=== PATIENT | male | born 1965 | race Caucasian/White ===

== ENCOUNTER 2016-11-03 10:05 | Emergency (ER) | payer SELFPAY ==
--- NOTE | 2016-11-03 10:52 | ERNOTE ---
Upper Extremity HPI - Narrative Date of Service: 11/03/16 - General Extremities Pain Location: hand: left, 5th finger: left Time Seen by Provider: 11/03/16 10:26 Source: patient Exam Limitations: no limitations - Immun/Allergies/Home Medications Immunizations: IMMUNIZATION HX Immunizations Up to Date Yes History of Influenza Vaccine No Hx Pneumococcal Vaccination No Allergies/Adverse Reactions: Allergies Allergy/AdvReac Type Severity Reaction Status Date / Time codeine AdvReac Mild n/v Verified 11/03/16 10:13 Home Medications: HOME MEDICATIONS Aspirin [Children's Aspirin] 81 mg PO DAILY 11/03/16 [Last Taken Unknown] - History of Present Illness Narrative: 51-year-old male presents to the emergency room for left hand swelling. Patient states that last Tuesday he was moving concrete when he accidentally dropped a piece on his left hand. Patient states that he is here for release back to work. he does not have any pain in his able to move his hand without any pain. Date (Duration): 11/03/16 Occurred: last week Location of Incident: home Severity: mild Method of Injury: Reports: direct blow Loss of Consciousness: Reports: no loss of consciousness Associated Symptoms: Denies: tingling, weakness, numbness distally, loss of feeling, loss of power (rt arm), loss of power (lt arm) Other Injuries: Reports: none Review of Systems - Review of Systems Constitutional: Present: no symptoms reported EYE: Present: no symptoms reported ENT: Present: no symptoms reported Respiratory: Present: no symptoms reported Cardiology: Present: no symptoms reported Gastrointestinal/Abdominal: Present: no symptoms reported Genitourinary: Present: no symptoms reported Musculoskeletal: Present: See HPI, joint swelling - swelling to back of his left hand Skin: Present: no symptoms reported Neurological: Present: no symptoms reported Endocrine: Present: no symptoms reported Hematologic/Lymphatic: Present: no symptoms reported Psych: Present: no symptoms reported All Other Systems: All systems neg except as marked - Patient's Past Medical History Patient History - Medical: Alcohol Abuse, Depression, Other Patient History - Cardiac/Respiratory: No pertinent hx Patient History - Cancer: No Hx of Cancer Patient History - Surgical Procedures: No surgical history Patient History - Other: None - Family History Mother Family History - Medical: History Unknown Father Family History - Medical: No pertinent hx, History Unknown - Social History Living Situations: home Abuse History: No History of abuse Psych History: Hx of Depression Alcohol Use: heavy Drug Use: marijuana, other - Immunizations Immunizations Up to Date: Yes Hx Pneumococcal Vaccination: No History of Influenza Vaccine: No Physical Exam - Physical Exam Narrative: tender over pink finger 1st knuckle. ROm WNL for patient, denies pain with ROM produce weigher equal, General Appearance: Present: wd/wn, alert, no apparent distress Eye Exam: Normal inspection: bilateral Ears, Nose, Throat: Present: normal ENT inspection Neck: Present: normal inspection, nontender Respiratory: Present: no respiratory distress, normal breath sounds, lungs clear Cardiovascular/Chest: Present: regular rate, rhythm, no murmur Peripheral Pulses: N=norm/S=strong/W=weak/B=bound/A=absent: Radial (R): Normal, Radial (L): Normal Gastrointestinal/Abdominal: Present: normal bowel sounds, nontender, soft Back Exam: Present: normal inspection, normal range of motion, no CVA tenderness Extremity Exam: Present: normal except -, extremity edema - back of left hand is swollen Neurological Exam: Present: alert, oriented, normal mood/affect, no motor/ sensory deficits Skin Exam: Present: normal color, warm/dry Lymphatic Exam: Present: no adenopathy ED Progress - Vital Signs Patient's Vital Signs:: I have reviewed the patient's vital signs. Vital Signs: Vital Signs 11/03/16 10:08 Temperature 36.4 C L Pulse Rate 121 H Respiratory 12 Rate Blood Pressure 147/114 O2 Sat by Pulse 97 Oximetry patient states he has chronic high BP. Does not want to treat it or any further work up on it at this time. - X-Ray X-Ray #1 X-Ray: hand Interpretation: Reviewed by me X-ray Comments: [facility] [address] [place] [address] NAME: PHIL SON : 1965 MR #: [id number] CC: Dany ALBERTO LOC: [facility] DATE: X-RAY REPORT [id number] RAD/Hand Minimum 3 Views LT * Exam Date: 11/03/2016 10:17 Ordering Physician: Yee Hobbs HISTORY/INDICATION: hand edema Additional history from technologist: A cement block fell on the left and one week ago, pain mostly in the fifth digit. TECHNIQUE: 4 views of the left hand. COMPARISONS: None available. Hand Minimum 3 Views LT * There is a comminuted fracture of the fifth metacarpal bone at the distal aspect including the distal metadiaphysis/head, with oblique and lateral images demonstrating approximately 30-40 degrees of angulation, with apex pointing in dorsal direction. Joint spaces are in gross normal alignment without subluxation or dislocation. Soft tissue swelling noted at the ulnar aspect of the hand near the fracture site. IMPRESSION: Comminuted, and angulated fracture of the distal metadiaphysis/head of the fifth metacarpal bone. Electronically signed by Jeremy Patel M.D.. Jeremy Patel MD - Progress/Reassessment Chief Complaint: Hand Injury/Pain Progress:: Pain free at discharge Plan - Plan Plan: patient is refusing any further work up on his left broken hand. States he understand its broken and will follow up with ortho as an out patient. he did not want ED to call ortho or attempt to brace his fractured hand. states hes fine and will call them himself. patient given a list with Physicians names on it and numbers. he states he will call and follow up. I explained to him that i am NOT RELEASING HIM BACK TO WORK AT THIS TIME. Departure Clinical Impression: Left hand fracture Qualifiers: Encounter type: initial encounter Fracture type: closed Qualified Code(s): S62.92XA - Unspecified fracture of left wrist and hand, initial encounter for closed fracture - Departure Disposition: Home Follow Up Needed Condition: Stable Instructions: Metacarpal Fracture Additional Instructions: Continue the previous home medications. Please remember to follow up with your orthopedist related to the fracture in her left hand. Return to the emergency room if his symptoms change or become worse. Referrals: Gary Posadas MD [Staff Physician] -
[2016-11-03 11:04] VITALS: BP 131/86
== END 2016-11-03 11:16 | disposition home or self-care (01) ==
LOC: ER 10:05
DX: S62.92XA Unspecified fracture of left hand, initial encounter for closed fracture (principal); X58.XXXA Exposure to other specified factors, initial encounter; Y93.H3 Activity, building and construction; Y92.69 Other specified industrial and construction area as the place of occurrence of the external cause; Y99.0 Civilian activity done for income or pay; Z53.29 Procedure and treatment not carried out because of patient's decision for other reasons